=== PATIENT | male | born 1960 | race Asian ===

== ENCOUNTER 2018-02-18 12:20 | Day surgery (SDC) | payer OTHER ==
[2018-02-18] MEDS ORDERED: MIDAZOLAM 1 MG/ML 2 ML INJ (14:28)
[2018-02-18] MEDS ORDERED: VERAPAMIL 5 MG INJ (14:28)
[2018-02-18] MEDS ORDERED: FENTAnyl 50 MCG/ML VIAL (14:28)
[2018-02-18] MEDS ORDERED: LIDOCAINE 1% (MDV) 10 ML INJ (14:28)
[2018-02-18] MEDS ORDERED: HEPARIN 1000 UNITS/ML 10 ML INJ (14:28)
[2018-02-18] MEDS ORDERED: NITROGLYCERIN (IC) 100 MCG/ML INJ (14:28)
[2018-02-18] MEDS: SOD CHLORIDE 0.9% 1,000 ML IV (18:29)
== END 2018-02-18 19:19 | disposition short-term general hospital (02) ==
LOC: SDS 12:20
DX: I25.10 Atherosclerotic heart disease of native coronary artery without angina pectoris (principal); I10 Essential (primary) hypertension
CPT/HCPCS: 93458